=== PATIENT | male | born 1965 | race Caucasian/White ===

== ENCOUNTER → 2021-02-08 07:57 | Outpatient (CLI) | payer BC ==
[2016-07-08 11:52] VITALS: BMI 45.4
[~2021-02-08 07:57] MED LIST: BUPROPION XL300 MG PO; DYAZIDE 37.5/251 CAP PO; GLUCOPHAGE500 MG PO; OMEPRAZOLE20 M1 PO
== END | disposition home or self-care (01) ==
LOC: D.US 07:57
PROVIDERS: ATTEND Family Medicine
DX: K76.0 Fatty (change of) liver, not elsewhere classified (principal)